=== PATIENT | female | born 1960 | race African-American/Black ===

== ENCOUNTER → 2020-03-24 | Outpatient (CLI) | payer OTHER | END | disposition home or self-care (01) | LOC: LAB 12:57 | PROVIDERS: ATTEND Internal Medicine Gastroenterology | DX: Z01.818 Encounter for other preprocedural examination (principal); Z11.59 Encounter for screening for other viral diseases | CPT/HCPCS: C9803; U0003 ==

== ENCOUNTER → 2020-03-28 | Day surgery (SDC) | payer OTHER ==
[~2020-03-28] MED LIST: IV RINGERS,LACTATED 1000ML 1,000 ML IV ONE; LIDOCAINE 2% PF 5 ML VIAL. ONE; PROPOFOL 10 MG/ML (20ML) VIAL. IV ONE
[2020-03-28 11:13] VITALS: BP 148/64
--- NOTE | 2020-03-29 15:07 | PATHOLOGY ---
[facility] Accession Number: [id number] . 01 Material submitted: . colon - TRANSVERSE POLYP BX. Modifiers: transverse . 01 Clinical history: . Screening . 02 Diagnosis: Colon biopsy, transverse colon polyp: - Sessile serrated polyp/adenoma. (JPM:vinicius; 03/29/2020) QMS 03/29/2020 0854 Local . 02 Comment: There is no high grade dysplasia or evidence of malignancy. (JPM:vinicius; 03/29/2020) . 02 Electronically signed: . Jeff Carter MD, Pathologist NPI- [id number] . 01 Gross description: . The specimen is received in formalin, labeled "Aundrea Murphy, transverse polyp BX" and consists of a fragment of pink-mcadams tissue measuring 0.5 x 0.4 cm which is entirely submitted in A1. (SDY; 03/28/2020) SYU/SYU 03/29/2020 0853 Local . 02 Pathologist provided ICD-10: D12.3 . 02 CPT . 078070 Specimen Comment: A courtesy copy of this report has been sent to [phone], [phone] Specimen Comment: 1974 Specimen Comment: Report sent to / DR TESFAYE Performed at: 01 [facility] [address], [place] [id number] MD Cristo Mahan MD Phone: [phone] Performed at: 02 [facility] [address] [place], [place] [id number] MD Jeff Carter MD Phone: [phone]
== END ==
LOC: SURG 09:07
PROVIDERS: ATTEND Internal Medicine Gastroenterology
DX: Z12.11 Encounter for screening for malignant neoplasm of colon (principal); D12.3 Benign neoplasm of transverse colon; K64.0 First degree hemorrhoids; F15.90 Other stimulant use, unspecified, uncomplicated; Z86.010 Personal history of colon polyps; Z98.890 Other specified postprocedural states
CPT/HCPCS: 45380; 88305; J2704; J3490